=== PATIENT | female | born 1975 | race Caucasian/White ===

== ENCOUNTER 2016-06-16 06:00 | Inpatient (IN) | payer OTHER ==
--- NOTE | 2016-06-15 10:35 | History & Physical ---
General Information and HPI MD Statement: I have seen and personally examined BERTHA MONTENEGRO and documented this H&P. The patient is a 40 year old female at [38] weeks and [3] days gestation who presented with a chief complaint of [elective repeat Source of Information: patient Exam Limitations: no limitations History of Present Illness: 40-year-old, G3 para 1011, at 38 weeks 3 days intrauterine , prior section 1, she's here for elective repeat as per recommendation of M. care started at 8 weeks 3 days, complicated by 1.gestational hypertension, she takes labetalol 300 twice a day, blood pressure monitoring within normal limits 2.gestational diabetes, she takes Humalog 6 units before dinner and Humulin 25 units before bed, glucose check at home within normal limits, last hemoglobin A1c was 5.5 3.AMA 4.Prior macrosomia baby( [id number]). 5. Previous section, Allergies/Medications Allergies: Coded Allergies: No Known Allergies (06/15/16) Home Med list Docusate Sodium 100 MG CAPSULE 100 MG PO AT BEDTIME PRN STOOL SOFTENER Ferrous Sulfate 324 MG (65 MG IRON) TABLET.DR 1 TAB PO DAILY anemia Ibuprofen 800 MG TABLET 800 MG PO Q6P PRN UTERINE CRAMPING Labetalol HCl 200 MG TABLET 200 MG PO BID hypertension Oxycodone HCl/Acetaminophen (Percocet 5-325 MG Tablet) 5 MG-325 MG TABLET 1-2 TAB PO Q4P PRN PAIN SCALE 4-10 (SEVERE) Pnv#16/Iron Fum & Ps/FA/Om-3 (Dothelle Dha Softgel) 35 MG-1 MG-200 MG CAPSULE 1 TAB PO D vitamin support Compliance With Home Meds: GOOD Past History scheduling clerk History : 3 Para: 1 Last Menstrual Period: 09/03/2015 Estimated Delivery Date: 06/27/2016 Past scheduling clerk History: macrosomia Past Pregnancies Past Pregnancies: Date of Delivery: 03/31/1993 Gestational Age: 41 wks Weight: 10lb. 10 oz. Type of Delivery: Anesthesia: Epidural Complications: None Medical History Blood Transfusion Hx: No Neurological: NONE EENT: NONE Cardiovascular: NONE Respiratory: NONE Gastrointestinal: NONE Hepatic: NONE Renal: NONE Musculoskeletal: NONE Psychiatric: NONE Endocrine: NONE Blood Disorders: NONE Cancer(s): NONE LEGISLATIVE ASSISTANT/Reproductive: NONE Surgical History Pertinent Surgical History: Past Family/Social History Psychosocial History Where do you live? Home Who Do You Live With? spouse, child Primary Language: German Smoking Status: Never Smoked ETOH Use: denies use Illicit Drug Use: denies illicit drug use Review of Systems Review of Systems Constitutional: Reports: no symptoms. EENTM: Reports: no symptoms. Cardiovascular: Reports: no symptoms. Respiratory: Reports: no symptoms. GI: Reports: no symptoms. Genitourinary: Reports: see HPI. Musculoskeletal: Reports: no symptoms. Skin: Reports: no symptoms. Neurological/Psychological: Reports: no symptoms. Hematologic/Endocrine: Reports: see HPI. Immunologic/Allergic: Reports: no symptoms. All Other Systems: Reviewed and Negative Date of LMP: 09/03/15 Post Menopausal: No Exam & Diagnostic Data Obstetric Exam Wgt Gained During : 1 lb Pelvimetry: adequate Dilation (cm): 0 Effacement (%): 50 Station: -3 Membranes: intact Fluid: unknown Fundal Height (cm): 38 Multiple Gestation? No Contractions: occasional #1 - FHR Baseline: 140 Category: 1 Estimated Weight: 3000g Presentation: vertex Patient for Induction? No Physical Exam: VSS general: NAD abdomen: gravid, soft, nontender. ext: DCT (-) Labs Blood Type & Rh: O+ Antibody Screen: Negative Hct/Hgb & Platelets #1: 13.4/39.6%, PLT [id number] Hct/Hgb & Platelets #2: 11.4/34.6%,[id number] Rubella: Immune VDRL #1: Negative VDRL #2: Negative HbsAg: Negative HIV #1: Negative HIV #2 Negative 1 Hr P Group B Strep: Negative Initial Ultrasound: IUP at 10 weeks 3 days Anatomy Ultrasound: Normal Genetic Testing: Normal Assessment/Plan Assessment/Plan: 40-year-old, G3 para 1011, prior section for macrosomia baby, gestational hypertension, gestational diabetes, here for repeat . 1. Admit patient, admission labs 2. Risks, benefits and alternatives of repeat section discussed with the patient, she understand, all questions answered, informed consent obtained. 3. will prepare for OR As Ranked By This Provider Problem List: 1. 2. Gestational HTN 3. Gestational diabetes mellitus 4. History of macrosomia in in prior , currently 5. History of 6. BMI 40.0-44.9, adult Core Measures/Miscellaneous Venous Thromboembolism VTE Risk Factors: / VTE Contraindications: No Contraindications VTE Diagnosis: No Beta Ty Is Beta Ty a Home Med? Yes Antibiotics Is Patient on Antibiotics? No Attending MD Review Statement Attending Statement Attending MD Statement: examined this patient, discussed with family, discussed w/nursing
[~2016-06-16] VITALS: Ht 180.3 cm; Wt 133.8 kg
--- NOTE | 2016-06-16 09:34 | Operative Report ---
Operative/Inv Procedure Report Surgery Date: 06/16/16 Name of Procedure: repeat low transverse section via pfannensteil Pre-Operative Diagnosis: 38 3/7wks IUP, getational HTN, gestational DM A2, prior x1,AMA , obesity Post-Operative Diagnosis: same Estimated Blood Loss: 500ml Surgeon/Residency Program Coordinator: CARLITO CAPELLAN,BRITTNEY Lombardo MD, Stu Anesthesia: spinal IV Fluids: LR 1800ml Urine Output: 300ml clear urine at end of procedure Specimens: placenta Complications: none Condition: stable Operative Indication: , 38 3/7wks, gestational HTN on labetalol,GDM A2, prior x 1 , placenta grade III, decreased LIU on 06/12/2016, recommended by [facility] Operative/Procedure Note Note: The patient was taken to the operating room where spinal anesthesia was found to be adequate. She was then prepared and draped in usual sterile fashion in the dorsal supine position with a leftward tilt. A Pfannenstiel skin incision was then made with the scalpel and carried through to the underlying layer of the fascia with the Bovie. The fascia was incised in the midline and the incision extended laterally with the Thomas scissors. The superior aspect of this fascial incision was then grasped with Stas clamps, elevated, and the underlying rectus muscle dissected off with Thomas scissors. Attention was then turned to the inferior aspect of this incision which in a similar fashion, was grasped, tented up with the Stas clamps, and the rectus muscle dissected off with Thomas scissors. The rectus muscle was then in the midline, and the peritoneum identified, tented up, and entered bluntly. The peritoneal incision was then extended superiorly and inferiorly with good visualization of the bladder. The bladder blade was then inserted and the vesicouterine peritoneum identified, grasped with the pickups and entered sharply with the Metzenbaum scissors. The incision was then extended laterally and the bladder flap created digitally. The bladder blade was then reinserted and the lower uterine segment incised in a transverse fashion with the scalpel. The uterine incision was then extended laterally. The bladder blade was removed and infant head delivered with Kiwi vaccum (2 popoff) assisted atraumatically, nuchal cord x1 , reduced easily. The nose and mouth suctioned with suction bulb and the cord clamped and cut, true knot noticed on cord. The was handed off to the waiting dextrine mixer. Cord gases was sent. The placenta was then removed manually. The uterus cleared of all clots and debris. The uterine incision was then repaired with 0 Vicryl in a running locked fashion. A second layer of the same suture was used to obtain excellent hemostasis. The gutters were cleared of all clots, and the peritoneum closed with 3-0 Vicryl. The rectus muscle were reapproximated with 2-0 Vicryl. The fascia was reapproximated with 0 Vicryl in a running fashion. Subcutaneous adipose tissue was reapproximated with 30 plain suture. Skin was closed with 4- 0 Vicryl subcuticularly. The patient tolerated the procedure well. Sponge, lap and needle counts were correct 2. Patient was taken to the recovery room in stable condition. Findings: Live female infant at cephalic presentation, BRIE position, weight 5 lbs. 10 oz., Apgars 8/9,true knot noticed on cord. dextrine mixer present at delivery, normal uterus tubes and ovaries. Additional Comments: cord gas: PH 7.34,base excess 3 CC: CARLITO CAPELLAN,BRITTNEY
[2016-06-17 09:00] LABS: ABSOLUTE BASOPHIL COUNT 0 /CUMM (0.0-0.2); ABSOLUTE EOSINOPHIL COUNT 0.1 /CUMM (0.0-0.7); ABSOLUTE GRANULOCYTE CT 3.9 /CUMM (1.4-6.5); ABSOLUTE LYMPH COUNT 1.1 /CUMM (1.2-3.4); ABSOLUTE MONOCYTE COUNT 0.2 /CUMM (0.10-0.60); BASOPHIL % 0.7 % (0.0-2.0); EOSINOPHIL % 2.1 % (0-5); HEMATOCRIT 28.9 % (37-47); MEAN CORPUSCULAR HGB 27.5 PG (27.0-31.0); MEAN CORPUSCULAR HGB CONC 33.7 G/DL (33.0-37.0); MEAN CORPUSCULAR VOLUME 81.8 FL (81.0-99.0); MEAN PLATELET VOLUME 7.4 FL (7.4-10.4); PLATELET COUNT 273 /CUMM (130-400); RBC DISTRIBUTION WIDTH 13.5 % (11.5-14.5); RED BLOOD CELL CT 3.54 /CUMM (4.20-5.40); WHITE BLOOD CELL COUNT 5.4 /CUMM (4.8-10.8)
--- NOTE | 2016-06-17 10:19 | PN- Post Delivery/GYN ---
Subjective Subjective: doing well PP no headache, no visual changes, no RUQ pain Review of Systems: Neg for cardiac Pulmonary GI complaints Objective Last 24 Hrs of Vital Signs/I&O Vital Signs Date Time Temp Pulse Resp B/P Pulse O2 O2 Flow FiO2 Ox Delivery Rate 06/17 0953 98.0 90 18 140/88 99 RA Physical Exam General Appearance Alert, Oriented X3, Cooperative, No Acute Distress Skin No Significant Lesion Cardiovascular Regular Rate Lungs Normal Air Movement Abdomen Normal Bowel Sounds, Soft, No Tenderness, No Hepatospenomegaly, Fundus firm - midline nontender - 2 FB below umbilicus Incision clean dry and intact Neurological Normal Gait, Normal Speech Extremities No Tenderness/Swelling Reproductive (FEMALE) Normal female genitalia, avge lochia Current Medications: Current Medications Sig/Lary Start time Last Medication Dose Route Stop Time Status Admin Ampicillin 2,000 MG .STK-MED ONE 06/17 0025 DC IM 06/17 0026 Ampicillin 2,000 MG Q6 06/16 1200 DC 06/17 Sodium Chloride 100 ML IV 06/17 1159 0032 Bisacodyl 10 MG DAILY NEEDED PRN 06/16 0915 AC OK Clindamycin 900 MG .STK-MED ONE 06/17 0025 DC IM 06/17 0026 Clindamycin 900 MG IQ8 06/16 1600 DC 06/17 Dextrose/Water 50 ML IV 06/17 0844 0102 Diphenhydramine HCl 25 MG Q6P PRN 06/16 1030 AC IV Docusate Sodium 100 MG AT BEDTIME PRN 06/16 0915 AC PO Enoxaparin Sodium 40 MG DAILY 06/17 1000 DC SC Enoxaparin Sodium 40 MG 2000 06/16 2000 AC 06/16 SC 2106 Gentamicin Sulfate 80 MG IQ8 06/16 1600 DC 06/16 Dextrose/Water 100 ML IV 06/17 0830 2355 Ibuprofen 800 MG Q6P PRN 06/16 0915 AC 06/17 PO 0502 Ketorolac 30 MG Q6P PRN 06/16 1030 AC 06/16 Tromethamine IV 06/17 1029 2104 Labetalol HCl 200 MG BID 06/17 1000 AC 06/17 PO 0953 Lactated Ringer's 1,000 ML Q8H 06/16 0915 AC 06/16 IV 2107 Metoclopramide HCl 10 MG Q6P PRN 06/16 1030 AC IV Naloxone HCl 0.2 MG .Q5MIN PRN 06/16 1030 AC IV Oxycodone/ 1 TAB Q4P PRN 06/16 0915 AC Acetaminophen PO Oxycodone/ 2 TAB Q4P PRN 06/16 0915 AC Acetaminophen PO Oxytocin 20 UNITS Q8H 06/16 09 DC 06/16 Lactated Ringer's 1,000 ML IV 06/16 1714 1341 Tetanus/Reduced 0.5 ML ONCE ONE 06/17 1000 DC Diphtheria/Acell IM 06/17 1001 Pertussis Last 24 Hrs of Labs/Rolan: Laboratory Tests 06/17/16 0840: CBC w Diff NO MAN DIFF REQ, RBC 3.54 L, MCV 81.8, MCH 27.5, RDW 13.5, MPV 7.4, Gran % 72.0, Lymphocytes % 20.8, Monocytes % 4.4, Eosinophils % 2.1, Basophils % 0.7, Absolute Granulocytes 3.9, Absolute Lymphocytes 1.1 L, Absolute Monocytes 0.2, Absolute Eosinophils 0.1, Absolute Basophils 0, PUBS MCHC 33.7 Assessment/Plan Assessment/Plan BP elevation noted the am PPD #1/ POD #1- will restart her labetalol @ 200 BID continue lovenox PP anemia PP will start Iron @ discharge home w/ PN Vits encourage po pain meds and full ambulation reg diet Problem List: 1. Gestational HTN 2. Gestational diabetes mellitus 3. History of macrosomia in infant in prior , currently 4. 5. History of 6. Anemia due to blood loss, acute 7. Status post repeat low transverse section 8. BMI 40.0-44.9, adult Attending MD Review Statement Attending Statement Attending MD Statement: examined this patient, discussed with family, discussed with nursing Attending Assessment/Plan: Fortunato Day MD
[2016-06-17] MEDS ORDERED: IBUPROFEN800 M1 PO (10:24)
[2016-06-17] MEDS ORDERED: [UNRECOGNIZED DRUG - OTHER] PO (10:24)
[2016-06-17] MEDS ORDERED: PERCOCET 5-3251 EACH PO (10:24)
[2016-06-17] MEDS ORDERED: LABETALOL HCL200 M1 PO (10:24)
[2016-06-17] MEDS ORDERED: FERROUS SULFAT324 MG PO (10:24)
[2016-06-17] MEDS ORDERED: DOCUSATE SODIU100 M3 PO (10:24)
--- NOTE | 2016-06-18 10:02 | PN- OBGYN ---
Surgical Brief Attending Note Brief Attending Note: Patient without complaints. She is ambulating, voiding, tolerating pain and po. +Nursing with some supplementation last night. On labetolol for CHTN. remarkable for GDM. Appropriate lochia. VSS:140s/70-80s NAD FF@U inc: c/d/i ext: no calf tenderness, Trace pedal edema b/l Laboratory Tests 06/18 839 Hematology CBC w Diff NO MAN DIFF REQ WBC (4.8 - 10.8 /CUMM) 5.4 RBC (4.20 - 5.40 /CUMM) 3.54 L Hgb (12.0 - 16.0 G/DL) 9.7 L Hct (37 - 47 %) 28.9 L MCV (81.0 - 99.0 FL) 81.8 MCH (27.0 - 31.0 PG) 27.5 RDW (11.5 - 14.5 %) 13.5 Plt Count (130 - 400 /CUMM) 273 MPV (7.4 - 10.4 FL) 7.4 Gran % (42.2 - 75.2 %) 72.0 Lymphocytes % (20.5 - 51.1 %) 20.8 Monocytes % (1.7 - 9.3 %) 4.4 Eosinophils % (0 - 5 %) 2.1 Basophils % (0.0 - 2.0 %) 0.7 Absolute Granulocytes (1.4 - 6.5 /CUMM) 3.9 Absolute Lymphocytes (1.2 - 3.4 /CUMM) 1.1 L Absolute Monocytes (0.10 - 0.60 /CUMM) 0.2 Absolute Eosinophils (0.0 - 0.7 /CUMM) 0.1 Absolute Basophils (0.0 - 0.2 /CUMM) 0 PUBS MCHC (33.0 - 37.0 G/DL) 33.7 Vital Signs Date Time Temp Pulse Resp B/P Pulse O2 O2 Flow FiO2 Ox Delivery Rate 06/17 2224 140/70 06/17 0953 98.0 90 18 140/88 06/16 1010 120/62 Microbiology Date/Time Procedure - Status Source Growth 06/16 909 Urine Culture - CAN URINE ROUT Cancelled: DUPLICATE ORDERS. Orders Procedure Date/time Status CBC WITHOUT DIFFERENTIAL 06/17 599 Complete Regular Diet 06/16 D Active Nothing by Mouth 06/16 B Complete PATHOLOGY SPECIMEN 06/16 1047 Complete Pathway - chart 06/16 909 Active Misc Message 06/16 09 Active Wound Care/Dressing 06/16 09 Active Vital Signs 06/16 09 Active Camara, Insertion/Removal/Asses 06/16 09 Active CBC: Device(s) 06/16 909 Active Activity/Ambulation 06/16 09 Active TRANSFER ORDERS 06/16 09 Complete Pathway - chart 06/16 06 Active Patient Data 06/16 06 Active Vital Signs 06/16 06 Complete OB: Monitoring 06/16 604 Complete CBC: Device(s) 06/16 604 Complete Activity/Ambulation 06/16 604 Complete CULTURE,URINE 06/16 604 Active Childbirth Center Pt Data 06/16 UNK Active Admit to inpatient 06/16 UNK Active VTE Mechanical Prophylaxis 06/16 UNK Active Procedure Prep 06/16 UNK Complete Camara, Insertion/Removal/Asses 06/16 UNK Complete PHARMACY COMMUNICATION FORM 06/16 UNK Active a/p POD2. s/p Repeat c/s. CHTN on labetolol . BPs stable. GDM. f/u with endocrine 6 weeks postop. obesity on lovenox. Routine postop care. Considering early discharge due to weather.
[2016-06-18 22:55] VITALS: BP 138/80
--- NOTE | 2016-06-19 14:05 | PN- Post Delivery/GYN ---
Subjective Subjective: Ready for discharge home Review of Systems: Neg for Cardiac, Pulmonary, GI complaints Objective Last 24 Hrs of Vital Signs/I&O Afebrile VSS Vital Signs Date Time Temp Pulse Resp B/P Pulse O2 O2 Flow FiO2 Ox Delivery Rate 06/18 2255 138/80 Physical Exam General Appearance Alert, Oriented X3, Cooperative, No Acute Distress Skin No Significant Lesion Cardiovascular Regular Rate Lungs Normal Air Movement Abdomen Normal Bowel Sounds, Soft, No Tenderness, No Hepatospenomegaly, uterus firm nontender, 3 FB below umbilicus incision clean dry intact Neurological Normal Gait, Normal Speech Extremities No Tenderness/Swelling Reproductive (FEMALE) Normal female genitalia, Avge lochia Current Medications: Current Medications Sig/Lary Start time Last Medication Dose Route Stop Time Status Admin Bisacodyl 10 MG DAILY NEEDED PRN 06/16 0915 AC WI Diphenhydramine HCl 25 MG Q6P PRN / 1030 AC IV Docusate Sodium 100 MG .STK-MED ONE 06/18 2254 DC PO 06/18 225 Docusate Sodium 100 MG AT BEDTIME PRN 06/16 0815 AC 06/18 PO 2258 Enoxaparin Sodium 40 MG 2000 06/17 1999 AC 06/18 SC 2015 Ibuprofen 800 MG .STK-MED ONE 06/18 2327 DC PO 06/18 2328 Ibuprofen 800 MG .STK-MED ONE 06/18 1910 DC PO 06/18 1911 Ibuprofen 800 MG Q6P PRN 06/16 0915 AC / PO 0934 Labetalol HCl 200 MG BID 06/17 1000 AC 06/19 PO 0934 Lactated Ringer's 1,000 ML Q8H 06/16 0915 AC 06/16 IV 2107 Metoclopramide HCl 10 MG Q6P PRN / 1030 AC IV Naloxone HCl 0.2 MG .Q5MIN PRN / 1030 AC IV Oxycodone/ 1 TAB Q4P PRN 06/16 0915 AC Acetaminophen PO Oxycodone/ 2 TAB Q4P PRN / 0915 AC Acetaminophen PO Last 24 Hrs of Labs/Rolan: POD #1 9.7/ 28 H/H Assessment/Plan Assessment/Plan Stable POD # 3 discharge home f/up 2 and 6 wks PP Rx motrin percocet, MVI, iron Problem List: 1. Gestational HTN 2. Gestational diabetes mellitus 3. History of macrosomia in in prior , currently 4. 5. Anemia due to blood loss, acute 6. BMI 40.0-44.9, adult 7. History of 8. Status post repeat low transverse section 9. Term of female Attending MD Review Statement Attending Statement Attending MD Statement: examined this patient, discussed with family, reviewed EMR data (avail), discussed with nursing Attending Assessment/Plan: Fortunato Day MD
--- NOTE | 2016-07-07 13:53 | Discharge Summary ---
Visit Information Visit Dates Admission Date: 06/16/16 Discharge Date: 06/19/16 Hospital Course Course Attending Physician: CARLITO CAPELLAN,BRITTNEY Primary Care Physician: PATIENT HAS NO PRIMARY CARE DR Hospital Course: patient was admitted for repeat on , she underwent repeat c- section without complications, she delivered a female at cephalic presentation, weight [id number], 8/9/9. During the hospital stay, patient remained in stable condition, vitals WNL, she tolerate diet, void without difficulties, ambulating well, abdomen soft, uterus firm, fundus below umbilicus. lochia mild. she was discharged on 06/19/2016 Complications: none Allergies: Coded Allergies: No Known Allergies (06/15/16) Significant Procedures: repeat Disposition Summary Disposition Principal Diagnosis: , 38 3/7wks, gestational HTN,GDM A2, prior Additional Diagnosis: AMA Discharge Disposition: home or self care Discharge Instructions General Discharge Information Code Status: Full Code Patient's Diet: regular Patient's Activity: as tolerated Follow-Up Instructions/Appts: pelvic rest in 8 wks, f/u in office in 2wks and 6 wks Medications at Discharge Discharge Medications: Start taking the following new medications: Labetalol HCl (Labetalol HCl) 200 MG TABLET 200 Milligram ORAL TWICE DAILY Qty = 120 Refills = 6 Comments: Last Taken:06/19/16 Time:0935 Ibuprofen (Ibuprofen) 800 MG TABLET 800 Milligram ORAL EVERY SIX HOURS NEEDED as needed for UTERINE CRAMPING Qty = 60 No Refills Comments: Last Taken:06/19/16 Time:0935 Oxycodone HCl/Acetaminophen (Percocet 5-325 MG Tablet) 5 MG-325 MG TABLET 1-2 Tablet ORAL EVERY 4 HOURS NEEDED as needed for PAIN SCALE 4-10 ( SEVERE) Qty = 30 No Refills Docusate Sodium (Docusate Sodium) 100 MG CAPSULE 100 Milligram ORAL AT BEDTIME as needed for STOOL SOFTENER Qty = 30 Refills = 6 Comments: Last Taken:06/18/16 Time:2258 Pnv#16/Iron Fum & Ps/FA/Om-3 (Dothelle Dha Softgel) 35 MG-1 MG-200 MG CAPSULE 1 Tablet ORAL Every Day Qty = 90 Refills = 3 Ferrous Sulfate (Ferrous Sulfate) 324 MG (65 MG IRON) TABLET.DR 1 Tablet ORAL DAILY Qty = 30 Refills = 6 Copies To: BRITTNEY ESTEBAN MD Attending MD Review Statement Documenting Attending: BRITTNEY ESTEBAN MD
== END 2016-06-19 15:08 | DRG 766 ==
LOC: GNO 06:00
PROVIDERS: ADMIT Obstetrics & Gynecology
PROC: 10D00Z1 Extraction of Products of Conception, Low, Open Approach (ICD-10-PCS; principal; 2016-06-16)
DX: O13.4 Gestational [pregnancy-induced] hypertension without significant proteinuria, complicating childbirth (principal); O24.424 Gestational diabetes mellitus in childbirth, insulin controlled; N85.8 Other specified noninflammatory disorders of uterus; Z3A.38 38 weeks gestation of pregnancy; Z37.0 Single live birth; O34.211 Maternal care for low transverse scar from previous cesarean delivery
CPT/HCPCS: GNOS; 36415; 87086; 88307; J0290; J0690; J1580; J1650; J1885; J7120